=== PATIENT | female | born 1965 | race Caucasian/White ===

== ENCOUNTER 2024-06-27 07:01 | Inpatient (IN) | payer MEDICAID ==
[2024-06-21 14:10] LABS: BASOPHILS # (AUTO) 0.1 X10'3 (0-0.2); BASOPHILS % (AUTO) 1.3 % (0-1); EOSINOPHILS # (AUTO) 0.2 X10'3 (0-0.9); LYMPHOCYTES # (AUTO) 2.2 X10'3 (1.1-4.8); LYMPHOCYTES % (AUTO) 38.6 % (21-51); MEAN CORPUSCULAR HEMOGLOBIN 30.4 PG (27.0-31.0); MEAN CORPUSCULAR HGB CONC 33.5 g/dL (33.0-36.5); MEAN CORPUSCULAR VOLUME 90.6 FL (78-98); MEAN PLATELET VOLUME 8.5 FL (7.4-10.4); MONOCYTES # (AUTO) 0.4 X10'3 (0-0.9); MONOCYTES % (AUTO) 7.3 % (2-12); NEUTROPHILS # (AUTO) 2.7 X10'3 (1.8-7.7); NEUTROPHILS % (AUTO) 48.8 % (42-75); PRE OP HEMATOCRIT 43.9 % (35.0-45.0); PRE OP HEMOGLOBIN 14.7 g/dL (12.0-16.0); PRE OP PLATELET COUNT 346 X10'3 (140-440); PRE OP WHITE BLOOD COUNT 5.6 10'3 (4.8-10.8); RED BLOOD COUNT 4.84 X10'6 (4.20-5.60); RED CELL DISTRIBUTION WIDTH 13.4 % (11.5-14.5)
[2024-06-21 14:16] LABS: ALBUMIN 3.7 G/DL (3.4-5.0); ALBUMIN/GLOBULIN RATIO 1.1 (1.1-1.5); ALKALINE PHOSPHATASE 138 IU/L (46-116); BLOOD UREA NITROGEN 23 MG/DL (7-18); BUN/CREATININE RATIO 22.3 (10.0-20.0); CALCIUM 9.5 MG/DL (8.5-10.1); CHLORIDE 101 MMOL/L (99-107); CREATININE 1.03 MG/DL (0.40-0.90); PRE OP ALT 34 U/L (30-65); PRE OP ANION GAP 5 (8-16); PRE OP AST 18 U/L (10-37); PRE OP BILIRUB, TOTAL 0.5 MG/DL (0.0-1.0); PRE OP GLUCOSE 103 MG/DL (70-104); PRE OP POTASSIUM 3.8 MMOL/L (3.4-5.1); PRE OP SODIUM 136 MMOL/L (135-145); TOTAL CARBON DIOXIDE 30.1 MMOL/L (24-32); eGFR 55 ML/MIN
[~2024-06-27] VITALS: Ht 154.9 cm; Wt 87.6 kg
[2024-06-27] VITALS (24 sets, daily range): BP systolic 103–138; BP diastolic 46–88; PULSE 76–96; RESP 12–19; TEMP 97.6–98.7; O2SAT 93–100
[2024-06-27] MEDS: clindamycin-Cleocin 900mg/D5W 50 ML IV ONE (05:30)
[~2024-06-27 07:01] MED LIST: ALB0.5UD NEB; ALBU8HFA INH; ATOR40TA72 PO; CHLO25TA10 PO; LISI40TA13 PO; LORA10TA7 PO; RIVA10TA PO; SEMA2PEN SQ
[2024-06-27] MEDS: ringers solution, lacted 1,000 ML IV SCH ×2 (07:34→07:35)
[2024-06-27] MEDS: gentamicin inj 250 MG in normal saline 100ml IV soln 100 ML IV ONE (07:34)
[2024-06-27] MEDS: famotidine 20mg tablet PO ONE (07:34)
[2024-06-27] MEDS ORDERED: ondansetron/PF 4mg/2ml inj IV PRN ×2 (07:35→11:35)
[2024-06-27] MEDS ORDERED: morphine 2 MG/ML inj. syringe IV PRN (07:35)
[2024-06-27] MEDS ORDERED: labetalol 20mg/4ml (5mg/ml) syringe IV PRN (07:35)
[2024-06-27] MEDS ORDERED: hydrALAZINE 20mg/ml inj. IV PRN (07:35)
[2024-06-27] MEDS ORDERED: fentaNYL/PF 50MCG/1 ML 2ML syringe IV PRN (07:35)
[2024-06-27] MEDS ORDERED: BUPIVAcaine/PF 2.5mg/ml (0.25%) 10ml vial ONE (08:50)
[2024-06-27] MEDS ORDERED: BUPIVACAINE liposomal/PF 13.3 MG/ML 10mL vial IM ONE (08:50)
[2024-06-27] MEDS ORDERED: BUPIVAcaine 2.5mg/ml inj 50ml vial (contains preservative) ONE (08:50)
[2024-06-27] MEDS ORDERED: LIDOcaine 1% 30ml preserv. free vial ONE (08:50)
[2024-06-27] MEDS ORDERED: sevoflurane 250ml liquid IH ONE (09:32)
[2024-06-27] MEDS ORDERED: midazolam 1 mg/ML 2ml injection ONE (09:40)
[2024-06-27] MEDS ORDERED: fentaNYL/PF 50MCG/1 ML 2ML syringe ONE (09:40)
[2024-06-27] MEDS ORDERED: LIDOcaine 2% (20mg/ml) 5ml vial ONE (09:45)
[2024-06-27] MEDS ORDERED: rocuronium 10mg/ml inj IV ONE (09:46)
[2024-06-27] MEDS ORDERED: propofol inj 20 ML IV ONE (09:46)
[2024-06-27] MEDS ORDERED: glycopyrrolate 0.2mg/ml inj ONE (09:48)
[2024-06-27] MEDS ORDERED: ondansetron/PF 4mg/2ml inj ONE (09:49)
[2024-06-27] MEDS ORDERED: acetaminophen 1,000mg/100ml IV 100 ML IV ONE (09:49)
[2024-06-27] MEDS ORDERED: sugammadex 200mg/2ml injection IV ONE (10:14)
[2024-06-27] MEDS: potassium CL 20mEq in D5-1/2NS 1,000 ML IV SCH (11:35)
[2024-06-27] MEDS ORDERED: naloxone 0.4 mg/ml inj IV PRN (11:35)
[2024-06-27] MEDS ORDERED: albuterol 2.5 MG/3 ML nebule NEB PRN (11:45)
[2024-06-27] MEDS: morphine 4 MG/ML inj SYRINge IV PRN (11:51)
[2024-06-27] MEDS: fentaNYL/PF 50MCG/1 ML 2ML syringe IV PRN (12:06)
[2024-06-27] MEDS: HYDROmorph/NS 0.2 mg/ml PCA 100 ML IV SCH (12:25)
[2024-06-27] MEDS: docusate sod 100mg capsule PO SCH (20:51)
[2024-06-27] MEDS: heparin, porcine 5000 units/ml vial SQ SCH (20:51)
[2024-06-27] MEDS: sennosides/docusate sodium tablet PO SCH (20:51)
[2024-06-27] MEDS: normal saline 1000ml 1,000 ML IV SCH (21:22)
[2024-06-28 02:00] VITALS: BP 127/80; PULSE 71; RESP 16; TEMP 97.6; O2SAT 98
[2024-06-28 06:00] VITALS: BP 127/77; PULSE 75; RESP 18; TEMP 98; O2SAT 97
[2024-06-28 08:00] VITALS: RESP 18; O2SAT 99
[2024-06-28] MEDS ORDERED: albuterol 2.5 MG/3 ML nebule NEB SCH (08:00)
[2024-06-28] MEDS: loratadine 10mg tablet PO SCH (09:23)
[2024-06-28] MEDS: atorvastatin 20mg tablet PO SCH (09:23)
[2024-06-28] MEDS: oxyCODONE/APAP 5-325mg tablet PO ONE (09:25)
[2024-06-28] MEDS: lisinopril 20mg tablet PO SCH (09:26)
[2024-06-28 10:00] VITALS: BP 107/71; PULSE 78; RESP 20; TEMP 98; O2SAT 95
[2024-06-28] MEDS: chlorthalidone 25mg tablet PO SCH (10:06)
[2024-06-28] MEDS: PCA WASTE DOCUMENTATION 1 MG ML MC SCH (10:26)
[2024-06-28] MEDS ORDERED: PER5325T PO (12:28)
[2024-06-28 13:59] VITALS: RESP 18
[2024-06-28] MEDS: oxyCODONE/APAP 5-325mg tablet PO PRN (13:59)
== END 2024-06-28 14:10 | disposition home or self-care (01) | DRG 227 ==
LOC: PAS IN 07:01 → UNDOADMIN 07:01 → EDSTATUS 09:00 → PAS IN 12:55 → SUR 3N 12:56
PROVIDERS: ADMIT Surgery; ATTEND Surgery
PROC: 8E0W4CZ Robotic Assisted Procedure of Trunk Region, Percutaneous Endoscopic Approach (ICD-10-PCS; 2024-06-27)
PROC: 3E0T3BZ Introduction of Anesthetic Agent into Peripheral Nerves and Plexi, Percutaneous Approach (ICD-10-PCS; 2024-06-27)
PROC: 0WUF4JZ Supplement Abdominal Wall with Synthetic Substitute, Percutaneous Endoscopic Approach (ICD-10-PCS; principal; 2024-06-27 09:32)
DX: K43.2 Incisional hernia without obstruction or gangrene (principal); Z88.0 Allergy status to penicillin; Z88.5 Allergy status to narcotic agent
CPT/HCPCS: 36415; 80053; 82948; 85025; 87081; 93005; A4215; A4615; A4618; C1758; C1781; G0378; J0131; J0666; J1100; J1171; J1580; J1644; J2003; J2250; J2270; J2371; J2405; J2704; J3010; J3480; J3490; J7120